=== PATIENT | female | born 1995 | race Two or more races ===

== ENCOUNTER 2018-07-03 09:26 | Observation (INO) | payer MEDICAID ==
[2018-07-03] MEDS ORDERED: PREN-96 PO (10:11)
== END 2018-07-03 10:30 | disposition home or self-care (01) | DRG 566 ==
LOC: LDRP 09:26
PROVIDERS: ADMIT Obstetrics & Gynecology; ATTEND Obstetrics & Gynecology
DX: O46.92 Antepartum hemorrhage, unspecified, second trimester (principal); Z3A.23 23 weeks gestation of pregnancy; Z87.891 Personal history of nicotine dependence
CPT/HCPCS: 59025; 76805; 81002; G0378

== ENCOUNTER 2019-06-06 00:15 | Emergency (ER) | payer SELFPAY ==
[~2019-06-06] VITALS: Ht 160 cm; Wt 88.0 kg
[~2019-06-06 00:15] MED LIST: PREN-96 PO
[2019-06-06 01:45] LABS: Basophils # (auto) 0.1 10 ^3/uL (0-0.2); Basophils % (auto) 0.7 % (0.0-2.0); Eosinophils # (auto) 0.1 10 ^3/uL (0-0.8); Eosinophils % (auto) 1.9 % (0.0-7.0); Hematocrit 42.8 % (36.0-46.0); Hemoglobin 14.7 g/dL (12.2-16.2); Lymphocytes # (auto) 3.3 10 ^3/uL (0.4-5.4); Lymphocytes % (auto) 41.2 % (10.0-50.0); Mean Corpuscular Hemoglobin 31.7 pg (28.0-32.0); Mean Corpuscular Hgb Conc. 34.5 g/dL (32.0-36.0); Mean Corpuscular Volume 91.9 fL (80.0-100.0); Monocytes # (auto) 0.4 10 ^3/uL (0-1.3); Monocytes % (auto) 4.8 % (0.0-12.0); Neutrophils # (auto) 4.1 10 ^3/uL (1.6-8.6); Neutrophils % (auto) 51.4 % (37.0-80.0); Nucleated Red Blood Cells % 0.1 %; Platelet Count (auto) 178 10^3/uL (140-450); Red Blood Cells 4.65 10^6/uL (4.0-5.20); Red Cell Distribution Width 13.7 % (11.8-14.3); White Blood Cell 7.9 10^3/uL (4.4-10.8)
[2019-06-06 02:03] LABS: Albumin 3.9 g/dL (3.4-5.0); Anion Gap 8 (5-15); Aspartate Aminotransferase 17 U/L (15-37); BUN/Creatinine Ratio 14.6; Blood Urea Nitrogen 13 mg/dL (7-18); Carbon Dioxide 20 mmol/L (21-32); Chloride 107 mmol/L (98-107); GFR African American 100 mL/min; GFR Non-African American 83 mL/min; Glucose 106 mg/dL (74-106); Magnesium 1.6 mg/dL (1.6-2.6); Potassium 3.5 mmol/L (3.5-5.1); Sodium 135 mmol/L (136-145)
[2019-06-06 02:08] LABS: Alanine Aminotransferase 33 U/L (13-56); Alkaline Phosphatase 73 U/L (45-117); Bilirubin, Total 0.3 mg/dL (0.2-1.0); Total Protein 7.7 g/dL (6.4-8.2)
[2019-06-06 02:09] LABS: INR 0.99 (0.9-1.15); Partial Thromboplastin Time 24.7 sec (23.64-32.05)
[2019-06-06 02:09] LABS: Alcohol, Urine < 3.0 mg/dL (0-5); Amphetamine Screen, Urine NEGATIVE (NEGATIVE); Barbiturate Scree,Urine NEGATIVE (NEGATIVE); Benzodiazephine Screen, Urine NEGATIVE (NEGATIVE); Cannabinoid Screen, Urine POSITIVE (NEGATIVE); Opiate Scree,Urine NEGATIVE (NEGATIVE); Phencyclidine Screen, Urine NEGATIVE (NEGATIVE)
[2019-06-06 02:16] LABS: Cocaine Screen, Urine NEGATIVE (NEGATIVE)
[2019-06-06] MEDS ORDERED: SODIUM CHLORIDE 0.9% 1,000 ML IV ONE (02:30)
[2019-06-06] MEDS ORDERED: IPRATROPIUM BROM 0.5 MG/2.5ML INH SOL NEB ONE (03:30)
[2019-06-06] MEDS ORDERED: ALBUTEROL SULF 2.5 MG/0.5ML(0.5%) NEB SOLN NEB ONE (03:30)
[2019-06-06] MEDS ORDERED: ALBUTEROL SULF 2.5 MG/0.5ML(0.5%) NEB SOLN ONE (03:34)
[2019-06-06] MEDS ORDERED: IPRATROPIUM BROM 0.5 MG/2.5ML INH SOL ONE (03:34)
[2019-06-06 04:00] VITALS: BP 124/81
== END 2019-06-06 05:40 | disposition home or self-care (01) ==
LOC: ER 00:15
DX: J45.909 Unspecified asthma, uncomplicated (principal); F41.9 Anxiety disorder, unspecified; F12.10 Cannabis abuse, uncomplicated
CPT/HCPCS: 36415; 71046; 80053; 80307; 83735; 83880; 84443; 84484; 85025; 85610; 85730; 93005; 94640; 99285; J7644

== ENCOUNTER 2020-05-05 16:31 | Emergency (ER) | payer MEDICAID ==
[~2020-05-05] VITALS: Ht 160 cm; Wt 81.6 kg
[2020-05-05 16:33] VITALS: BP 145/63
[2020-05-05] MEDS ORDERED: SUMAtriptan SUCCINATE 6 MG/0.5 ML VL SC ONE (20:45)
== END 2020-05-05 22:02 | disposition home or self-care (01) ==
LOC: ER 16:32
DX: G43.909 Migraine, unspecified, not intractable, without status migrainosus (principal); F12.10 Cannabis abuse, uncomplicated
CPT/HCPCS: 96372; 99283; J3030

== ENCOUNTER 2020-11-11 15:50 | Emergency (ER) | payer MEDICAID ==
[~2020-11-11] VITALS: Ht 160 cm; Wt 88.9 kg
[2020-11-11 20:23] VITALS: BP 118/69
== END 2020-11-11 20:50 | disposition home or self-care (01) ==
LOC: ER 15:50
DX: O99.513 Diseases of the respiratory system complicating pregnancy, third trimester (principal); R09.82 Postnasal drip; R05 Cough; R09.81 Nasal congestion; J45.909 Unspecified asthma, uncomplicated; Z3A.26 26 weeks gestation of pregnancy

== ENCOUNTER 2022-01-14 23:21 | Emergency (ER) | payer MEDICAID ==
[~2022-01-14] VITALS: Ht 160 cm; Wt 86.1 kg
[2022-01-15 00:23] VITALS: BP 152/98
[2022-01-15 01:05] LABS: Urine Bacteria FEW /hpf (None Seen); Urine Blood 3+ /uL (Negative); Urine Specific Gravity 1.008 (1.001-1.035); Urine WBC 1 /hpf (0 - 5)
[2022-01-15 01:58] LABS: Basophils # (auto) 0.1 10 ^3/uL (0-0.2); Basophils % (auto) 0.7 % (0.0-2.0); Eosinophils # (auto) 0.2 10 ^3/uL (0-0.8); Hematocrit 41.6 % (36.0-46.0); Lymphocytes # (auto) 3.8 10 ^3/uL (0.4-5.4); Lymphocytes % (auto) 44.9 % (10.0-50.0); Mean Corpuscular Hemoglobin 31.5 pg (28.0-32.0); Mean Corpuscular Hgb Conc. 33.7 g/dL (32.0-36.0); Mean Corpuscular Volume 93.4 fL (80.0-100.0); Monocytes # (auto) 0.4 10 ^3/uL (0-1.3); Monocytes % (auto) 4.3 % (0.0-12.0); Neutrophils # (auto) 4.1 10 ^3/uL (1.6-8.6); Neutrophils % (auto) 48.1 % (37.0-80.0); Nucleated Red Blood Cells % 0.1 %; Red Blood Cells 4.46 10^6/uL (4.0-5.20); Red Cell Distribution Width 13.9 % (11.8-14.3); White Blood Cell 8.5 10^3/uL (4.4-10.8)
[2022-01-15 02:04] LABS: INR 0.92 (0.9-1.15); Partial Thromboplastin Time 26.2 sec (24.6-33.4)
[2022-01-15] MEDS ORDERED: AZIT250T9 PO ×2 (02:21→08:01)
[2022-01-15 02:25] LABS: Albumin 3.8 g/dL (3.4-5.0); BUN/Creatinine Ratio 12.3; Calcium 8.9 mg/dL (8.5-10.1); Potassium 4.2 mmol/L (3.5-5.1)
[2022-01-15 02:28] LABS: Bilirubin, Total 0.3 mg/dL (0.2-1.0); Total Protein 7.4 g/dL (6.4-8.2)
[2022-01-15] MEDS ORDERED: AZITHROMYCIN 250 MG TAB PO ONE ×2 (02:30→03:14)
== END 2022-01-15 07:50 | disposition home or self-care (01) ==
LOC: ER 23:23
DX: N93.8 Other specified abnormal uterine and vaginal bleeding (principal); Z32.02 Encounter for pregnancy test, result negative
CPT/HCPCS: 36415; 76801; 80053; 81001; 81025; 84702; 85025; 85610; 85730; 86850; 86900; 86901

== ENCOUNTER 2022-01-17 06:30 | Emergency (ER) | payer MEDICAID ==
[~2022-01-17] VITALS: Ht 160 cm; Wt 85.9 kg
[~2022-01-17 06:30] MED LIST changes: +AZIT250T9 PO
[2022-01-17 07:30] VITALS: BP 108/64
== END 2022-01-17 08:01 | disposition home or self-care (01) ==
LOC: ER 06:30
DX: O03.9 Complete or unspecified spontaneous abortion without complication (principal)
CPT/HCPCS: 36415; 84702

== ENCOUNTER 2024-07-20 13:01 | Emergency (ER) | payer MEDICAID ==
[~2024-07-20] VITALS: Ht 160 cm; Wt 79.2 kg
[~2024-07-20 13:01] MED LIST changes: +AZIT-43 PO; -AZIT250T9 PO; +SILV1CRE82 TOP
--- NOTE | 2024-07-20 14:36 | DVH ---
INDICATION: NECK PAIN TO SHOULDER COMPARISON: None TECHNIQUE: 3 views of the cervical spine were obtained. FINDINGS: The cervical vertebral alignment is normal. The predental space is normal. The intervertebral disc spaces are well-maintained. No significant facet arthropathy is noted. No acute fracture, vertebral compression deformity or aggressive osseous lesions. The imaged lung apices are unremarkable. IMPRESSION: No acute fracture.
[2024-07-20 15:21] VITALS: BP 140/92; PULSE 72; RESP 17; TEMP 97.6; O2SAT 97
[2024-07-20] MEDS ORDERED: METH-1182 PO (15:44)
[2024-07-20] MEDS ORDERED: IBUP-1456 PO (15:44)
--- NOTE | 2024-07-20 15:52 | ED.PDOC ---
Back pain HPI HPI Comments A 28 YEAR OLD FEMALE PRESENTS TO THE ED WITH CHIEF COMPLAINT OF NECK PAIN. PATIENT REPORTS THAT SHE HAS BEEN EXPERIENCING LEFT SIDED NECK PAIN THAT RADIATES INTO HER LEFT SHOULDER FOR THE PAST 3 DAYS. 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 PATIENT DENIES ANY INJURY, TRAUMA, DIZZINESS, HEADACHE, OR EAR PAIN. NO OTHER SYMPTOMS REPORTED AT THIS TIME OF CARE. Chief Complaint: Neck Pain Time Seen by MD: 15:20 Primary Care Provider: Zachery Hoang Notes: Nurses Notes, Medications, Allergies Allergies: Coded Allergies: NO KNOWN ALLERGIES (Unverified , 04/20/10) Home Meds Active Scripts Methocarbamol (Methocarbamol) 750 Mg Tab, 750 MG PO BID, #20 TAB Prov:DENISE WHITE 07/20/24 Ibuprofen (Ibuprofen) 800 Mg Tab, 1 TAB PO TID, #30 TAB Prov:DENISE WHITE 07/20/24 Silver Sulfadiazine (Silvadene) 1 % Cre, 1 APPLIC TOP DAILY, #50 GRAMS Prov:RENATE ELIZONDO PAC 04/04/23 Azithromycin (Azithromycin) 250 Mg Tab, 250 MG PO DAILY for 4 Days, #4 TAB Prov:NIGEL CARDOZO MD 01/15/22 Azithromycin (Azithromycin) 250 Mg Tab, 250 MG PO DAILY for 4 Days, #4 TAB Prov:CURTIS SILVER MD 01/15/22 Reported Medications Vit W/ Ferrous Fumara ( One Daily) Daily Tab, 1 TAB PO DAILY, #90 TAB 3 Refills 07/03/18 Information Source: Patient Mode of Arrival: Ambulatory Timing: Days Duration: Since onset, Days Location of Back pain: (B) Cervical Severity: Moderate Prehospital treatment: None Quality: Aching, Cramping Onset: Twisting, Lifing Circumstance: Work Related Modifying Factors: Movement Associated signs and symptoms: None Past Medical History PAST MEDICAL HISTORY: Asthma Surgical History: Denies all surgeries FUR FINISHER TAILOR History: No Pertinent FUR FINISHER TAILOR History Family History Family History: Reviewed,noncontributory to illness, No family hx of Cancer, No family hx of DM, No family hx of Heart jose, No family hx of HTN, No family hx ofKidney jose, No family hx of Liver jose, No family hx of Lung jose, No family hx of Stroke Family History (Other): mother with asthma Social History Smoker: Non-Smoker Alcohol: Denies ETOH Use Drugs: Marijuana Lives In: Home Constitutional: denies: chills, diaphoresis, fatigue, fever, malaise, sweats, weakness, others EENTM: denies: blurred vision, double vision, ear bleeding, ear discharge, ear drainage, ear pain, ear ringing, eye pain, eye redness, hearing loss, mouth pain, mouth swelling, nasal discharge, nose bleeding, nose congestion, nose pain, photophobia, tearing, throat pain, throat swelling, voice changes, others Respiratory: denies: cough, hemoptysis, orthopnea, SOB at rest, shortness of breath, SOB with excertion, stridor, wheezing, others Cardiovascular: denies: chest pain, dizzy spells, diaphoresis, Dyspnea on exertion, edema, irregular heart beat, left arm pain, lightheadedness, palpitations, PND, syncope, others Gastrointestinal: denies: abdomen distended, abdominal pain, blood streaked bowels, constipated, diarrhea, dysphagia, difficulty swallowing, hematemesis, melena, nausea, poor appetite, poor fluid intake, rectal bleeding, rectal pain, vomiting, others Genitourinary: denies: abnormal vagina bleeding, burning, dyspareunia, dysuria, flank pain, frequency, hematuria, incontinence, pain, , vagina discharge, urgency, others Musculoskeletal: reports: muscle pain, neck pain; denies: back pain, gout, joint pain, joint swelling, muscle stiffness, others Integumetry: denies: bruises, change in color, change in hair/nails, dryness, laceration, lesions, lumps, rash, wounds, others Allergic/Immunocompromised: denies: Difficulty Healing, Frequent Infections, Hives, Itching, others Hematologic/Lymphatic: denies: anemia, blood clots, easy bleeding, easy bruising, swollen glands, others Endocrine: denies: excessive hunger, excessive sweating, excessive thirst, excessive urination, flushing, intolerance to cold, intolerance to heat, unexplained weight gain, unexplained weight loss, others Psychiatric: denies: anxiety, bipolar disorder, depression, hopeless, panic disorder, schizophrenia, sleepless, suicidal, others All Other Systems: Reviewed and Negative Physical Exam General Appearance: No Apparent Distress, Normal HEENT: Normal ENT Inspection, PERRL/EOMI, Pharynx Normal, TMs Normal Neck: Full Range of Motion, Normal Inspection, Supple, Tender Lateral (TENDERNESS AND MUSCLE SPASM ON LEFT SIDE NECK AND UPPER BACK, NO BONY TENDERNESS, SWELLING AND DEFORMITY. ) Respiratory: Chest Non-Tender, Lungs Clear, No Accessory Muscle Use, No Respiratory Distress, Normal Breath Sounds Cardiovascular: No Edema, No JVD, No Murmur, No Gallop, Normal Peripheral Pulses, Regular Rate/Rhythm Breast Exam: Deferred Gastrointestinal: No Organomegaly, Non Tender, No Pulsatile Mass, Normal Bowel Sounds, Soft Genitalia: Deferred Pelvic: Deferred Rectal: Deferred Extremities: No calf tenderness, Normal capillary refill, Normal inspection, Normal range of motion, Non-tender, No pedal edema Musculoskeletal : Apperance: Normal Neurologic: Alert, supervisory air intercept controller II-XII nml as Tested, No Motor Deficits, Normal Affect, Normal Mood, No Sensory Deficits Cerebellar Function: Normal Reflexes: Normal Skin: Dry, Normal Color, Warm Peripheral Pulses: 2+ carotid (R), 2+ carotid (L) Lymphatic: No Adenopathy Was a procedure done? Was a procedure done?: No Back Pain Differential Dx Differential Diagnosis: Musculoskeletal Pain, Strain X-Ray, Labs, Meds, VS Vital Signs Date Time Temp Pulse Resp B/P (MAP) Pulse Ox O2 Delivery O2 Flow Rate FiO2 07/20/24 15:21 97.6 72 17 140/92 (108) 97 97.6 07/20/24 15:21 72 17 97 Room Air 07/20/24 13:40 97.6 72 17 140/92 (108) 97 97.6 C-SPINE XR: FINDINGS: The cervical vertebral alignment is normal. The predental space is normal. The intervertebral disc spaces are well-maintained. No significant facet ar thropathy is noted. No acute fracture, vertebral compression deformity or aggressive osseous lesions. The imaged lung apices are unremarkable. IMPRESSION: No acute fracture. X-Ray, Labs, Meds, VS Comment EXTERNAL MEDICAL RECORDS REVIEWED: [NONE] INDEPENDENT HISTORIANS: [NONE] SOCIAL DETERMINANTS OF HEALTH: [NONE] LABS ORDERED: NONE REVIEWED AND INTERPRETED RESULTS: C-SPINE XR IMAGING ORDERED: C-SPINE XR TREATMENTS ORDERED: NONE PROCEDURES PERFORMED: NONE CRITICAL CARE TIME: NONE I HAVE DISCUSSED THE PATIENT WITH THE ATTENDING PHYSICIAN DR. CALLAHAN AND HE AGREES WITH THE PATIENT'S PLAN OF CARE AND DISPOSITION. BASED ON HISTORY OF PRESENT ILLNESS, AND PHYSICAL EXAM, PATIENT WILL BE DISCHARGED HOME. DISCUSSED PLAN FOR DISCHARGE HOME WITH RX IBUPROFEN AND ROBAXIN. MEDICATION WARNINGS GIVEN. SHARED DECISION MAKING: DISCUSSED WITH PATIENT THAT THEIR WORKUP WAS NORMAL. PATIENT INSTRUCTED TO FOLLOW UP WITH PRIMARY CARE PROVIDER IN 1-2 DAYS FOR RE- EVALUATION OF SYMPTOMS. PATIENT VERBALIZES UNDERSTANDING TO RETURN TO ED FOR NEW OR WORSENING SYMPTOMS OR IF FOLLOW UP WITH PCP CANNOT BE OBTAINED. PATIENT FEELS COMFORTABLE GOING HOME AT THIS TIME. ALL QUESTIONS ADDRESSED AT TIME OF DISCHARGE. Time of 1ST Reevaluation: 15:56 Reevaluation 1ST: Improved Patient Education/Counseling: Diagnosis, Treatment, Need For Follow Up Family Education/Counseling: Diagnosis, Treatment, No Family Present Medical Screening: No EMC Exist At This Time Departure 1 Departure Time of Disposition: 15:56 Impression: Primary Impression: Cervical muscle strain Qualified Codes: S16.1XXA - Strain of muscle, fascia and tendon at neck level, initial encounter Disposition: 01 HOME / SELF CARE / HOMELESS Condition: Stable Additional Instructions: FOLLOW-UP WITH PCP IN 1 TO 2 DAYS. TAKE MEDICATIONS PRESCRIBED. RETURN TO ED FOR ANY NEW OR WORSENING SYMPTOMS. e-Prescriptions Methocarbamol (Methocarbamol) 750 Mg Tab 750 MG PO BID, #20 TAB Prov: DENISE WHITE 07/20/24 Ibuprofen (Ibuprofen) 800 Mg Tab 1 TAB PO TID, #30 TAB Prov: DENISE WHITE 07/20/24 Discharged With: Self Critical Care Note Critical Care Time?: No Stability Stability form required: No Heart Score Heart Score: Heart Score Response (Comments) Value History N/A 0 EKG N/A 0 Age N/A 0 Risk Factors N/A 0 Troponin N/A 0 Total 0 I personally scribed for DENISE WHITE ([email or web address]) on 07/20/24 at 15:54. Electronically submitted by Charlie Mayers ([email or web address]). DENISE WHITE Jul 20, 2024 15:52
== END 2024-07-20 15:49 | disposition home or self-care (01) ==
LOC: ER 13:11
DX: S16.1XXA Strain of muscle, fascia and tendon at neck level, initial encounter (principal); J45.909 Unspecified asthma, uncomplicated; X50.9XXA Other and unspecified overexertion or strenuous movements or postures, initial encounter; Y93.89 Activity, other specified; Y92.89 Other specified places as the place of occurrence of the external cause; Y99.8 Other external cause status
CPT/HCPCS: 72040

== ENCOUNTER 2024-08-23 07:56 | Emergency (ER) | payer MEDICAID ==
[~2024-08-23] VITALS: Ht 160 cm; Wt 81.5 kg
[~2024-08-23 07:56] MED LIST changes: +IBUP-1456 PO; +METH-1182 PO
--- NOTE | 2024-08-23 08:17 | ED.PDOC ---
History of Present Illness HPI Comments 28-year-old female had a syncopal episode last night while cleaning her kitchen. She was standing when she fell onto her head causing a wound on her scalp. She states that she had ringing in her ears prior to the fall other than that she does not remember the event. She woke up in the morning on the floor. Denies any past medical surgical history. Chief Complaint: Head Injury Time Seen by MD: 08:16 Primary Care Provider: Zachery Hoang Notes: Nurses Notes, Medications, Allergies Allergies: Coded Allergies: NO KNOWN ALLERGIES (Unverified , 04/20/10) Home Meds Active Scripts Nitrofurantoin Monohydrate Mac (Macrobid) 100 Mg Cap, 100 MG PO BID for 7 Days, #14 CAP Prov:DUSTY WELCH MD 08/23/24 Methocarbamol (Methocarbamol) 750 Mg Tab, 750 MG PO BID, #20 TAB Prov:DENISE WHITE 07/20/24 Ibuprofen (Ibuprofen) 800 Mg Tab, 1 TAB PO TID, #30 TAB Prov:DENISE WHITE 07/20/24 Silver Sulfadiazine (Silvadene) 1 % Cre, 1 APPLIC TOP DAILY, #50 GRAMS Prov:RENATE ELIZONDO PAC 04/04/23 Azithromycin (Azithromycin) 250 Mg Tab, 250 MG PO DAILY for 4 Days, #4 TAB Prov:NIGEL CARDOZO MD 01/15/22 Azithromycin (Azithromycin) 250 Mg Tab, 250 MG PO DAILY for 4 Days, #4 TAB Prov:CURTIS SILVER MD 01/15/22 Reported Medications Vit W/ Ferrous Fumara ( One Daily) Daily Tab, 1 TAB PO DAILY, #90 TAB 3 Refills 07/03/18 Information Source: Patient Mode of Arrival: Ambulatory Severity: Moderate Timing: Hours Duration: Since onset Past Medical History PAST MEDICAL HISTORY: Asthma Surgical History: Denies all surgeries ECHOCARDIOLOGIST History: No Pertinent ECHOCARDIOLOGIST History Family History Family History: Reviewed,noncontributory to illness, No family hx of Cancer, No family hx of DM, No family hx of Heart jose, No family hx of HTN, No family hx ofKidney jose, No family hx of Liver jose, No family hx of Lung jose, No family hx of Stroke Family History (Other): mother with asthma Social History Smoker: Non-Smoker Alcohol: Denies ETOH Use Drugs: Marijuana Lives In: Home Constitutional: denies: chills, diaphoresis, fatigue, fever, malaise, sweats, weakness, others EENTM: denies: blurred vision, double vision, ear bleeding, ear discharge, ear drainage, ear pain, ear ringing, eye pain, eye redness, hearing loss, mouth pain, mouth swelling, nasal discharge, nose bleeding, nose congestion, nose pain, photophobia, tearing, throat pain, throat swelling, voice changes, others Respiratory: denies: cough, hemoptysis, orthopnea, SOB at rest, shortness of breath, SOB with excertion, stridor, wheezing, others Cardiovascular: reports: syncope; denies: chest pain, dizzy spells, diaphoresis, Dyspnea on exertion, edema, irregular heart beat, left arm pain, li ghtheadedness, palpitations, PND, others Gastrointestinal: denies: abdomen distended, abdominal pain, blood streaked bowels, constipated, diarrhea, dysphagia, difficulty swallowing, hematemesis, melena, nausea, poor appetite, poor fluid intake, rectal bleeding, rectal pain, vomiting, others Genitourinary: denies: abnormal vagina bleeding, burning, dyspareunia, dysuria, flank pain, frequency, hematuria, incontinence, pain, , vagina discharge, urgency, others Neurological: denies: dizziness, fainting, headache, left sided numbness, left sided weakness, numbness, paresthesia, pre-existing deficit, right sided numbness, right sided weakness, seizure, speech problems, tingling, tremors, wea kness, others Musculoskeletal: denies: back pain, gout, joint pain, joint swelling, muscle pain, muscle stiffness, neck pain, others Integumetry: denies: bruises, change in color, change in hair/nails, dryness, l aceration, lesions, lumps, rash, wounds, others Allergic/Immunocompromised: denies: Difficulty Healing, Frequent Infections, Hives, Itching, others Hematologic/Lymphatic: denies: anemia, blood clots, easy bleeding, easy bruising, swollen glands, others Endocrine: denies: excessive hunger, excessive sweating, excessive thirst, excessive urination, flushing, intolerance to cold, intolerance to heat, unexplained weight gain, unexplained weight loss, others Psychiatric: denies: anxiety, bipolar disorder, depression, hopeless, panic disorder, schizophrenia, sleepless, suicidal, others Physical Exam General Appearance: Moderate Distress HEENT: Normal ENT Inspection, Pharynx Normal, TMs Normal Neck: Full Range of Motion, Non-Tender, Normal, Normal Inspection Respiratory: Chest Non-Tender, Lungs Clear, No Accessory Muscle Use, No Re spiratory Distress, Normal Breath Sounds Cardiovascular: No Edema, No JVD, No Murmur, No Gallop, Normal Peripheral Pulses, Regular Rate/Rhythm Breast Exam: Deferred Gastrointestinal: No Organomegaly, Non Tender, No Pulsatile Mass, Normal Bowel Sounds, Soft Genitalia: Deferred Pelvic: Deferred Rectal: Deferred Extremities: No calf tenderness, Normal capillary refill, Normal inspection, Normal range of motion, Non-tender, No pedal edema Musculoskeletal : Apperance: Normal Neurologic: Alert, sustainment logistics analyst II-XII nml as Tested, No Motor Deficits, Normal Affect, Normal Mood, No Sensory Deficits Cerebellar Function: Normal Reflexes: Normal Skin: Dry, Lacerations (Scalp), Normal Color, Warm Peripheral Pulses: 3+ Radial (R), 3+ Radial (L) Lymphatic: No Adenopathy Was a procedure done? Was a procedure done?: Yes Sedation Sedation?: No Laceration Repair : Location Scalp Length 2 cm Anesthetic: Lidocaine Laceration Repair Prep: Saline Laceration Repair Wound Comple: epidermis/dermis repair Laceration Repair: [place] (Three) EKG EKG : Pulse Rate (adult): 75 Cardiac Rhythm: NSR Differential Dx Considerations may include: Head injury Syncope X-Ray, Labs, Meds, VS Vital Signs Date Time Temp Pulse Resp B/P (MAP) Pulse Ox O2 Delivery O2 Flow Rate FiO2 08/23/24 10:36 98.3 74 18 117/75 (89) 96 98.3 08/23/24 10:36 74 18 96 Room Air 08/23/24 08:18 76 08/23/24 08:17 75 08/23/24 08:15 75 08/23/24 08:10 97.6 76 18 114/70 (85) 99 97.6 Lab Test 08/23/24 08:49 08/23/24 08:15 Range/Units Troponin I High Sensitivity < 3 L </=34 ng/L Urine Color Colorless Yellow Urine Clarity Clear Clear Urine pH 6.0 5.0-9.0 Urine Specific [place] 1.005 1.001-1.035 Urine Protein Negative Negative Urine Ketones Negative Negative Urine Blood Negative Negative /uL Urine Nitrite Negative Negative Urine Bilirubin Negative Negative Urine Urobilinogen Normal Negative mg/dL Urine Leukocyte Esterase 2+ Negative /uL Urine RBC 4 0 - 4 /hpf Urine Microscopic WBC 3 0-5 /HPF Urine Squamous Epithelial Cells Few <5 /hpf Urine Bacteria None seen None Seen /hpf Urine Glucose Normal Normal mg/dL Patient alert. Status post fall. Has a abrasion on the scalp. Vitals stable. Answering questions. Ambulating. Physical examination pristine. Continue monitoring. EKG reviewed does not show any acute changes. CT of the head reviewed does not show any acute changes. Urinalysis shows UTI. Was given prescription of Macrobid antibiotic. Explained to the patient. Satisfied with the treatment plan. Was told to follow up with her primary care physician. Was told to come back if there is any problem. Time of 1ST Reevaluation: 08:27 Reevaluation 1ST: Unchanged Patient Education/Counseling: Diagnosis, Treatment, Prognosis, Need For Follow Up Family Education/Counseling: No Family Present Departure 1 Departure Time of Disposition: 08:28 Impression: Primary Impression: Syncope Qualified Codes: R55 - Syncope and collapse Additional Impressions: Head injury Qualified Codes: S09.90XA - Unspecified injury of head, initial encounter UTI (urinary tract infection) Qualified Codes: N30.00 - Acute cystitis without hematuria Laceration Disposition: HOME / SELF CARE / HOMELESS Condition: Good e-Prescriptions Nitrofurantoin Monohydrate Mac (Macrobid) 100 Mg Cap 100 MG PO BID for 7 Days, #14 CAP Prov: DUSTY WELCH MD 08/23/24 Discharged With: Self Critical Care Note Critical Care Time?: Yes (45 min-critical care time only) Critical care comment: Syncopal episode Stability Stability form required: No Heart Score Heart Score: Heart Score Response (Comments) Value History Slightly Suspicious 0 EKG Normal 0 Age <45 0 Risk Factors No known risk factors 0 Troponin Normal limit 0 Total 0 DUSTY WELCH MD August 23, 2024 08:17
[2024-08-23 08:18] VITALS: PULSE 76
[2024-08-23 08:34] LABS: Urine Bacteria None Seen /hpf (None Seen)
[2024-08-23 08:41] LABS: Urine Blood Negative /uL (Negative); Urine Clarity Clear (Clear); Urine Color Colorless (Yellow); Urine Protein, UAD Negative (Negative); Urine Specific Gravity 1.005 (1.001-1.035); Urine Squamous Epithelial Cell FEW /hpf (<5); Urine Urobilinogen Normal (Negative); Urine WBC 3 /HPF (0-5)
--- NOTE | 2024-08-23 09:02 | DVH ---
EXAM: CT HEAD WITHOUT CONTRAST HISTORY: syncope COMPARISON: None TECHNIQUE: Axial images of the head were obtained and reformatted in coronal and sagittal planes. All CT scans at this medical facility are performed using dose modulation techniques as appropriate t o a performed exam including the following: Automated exposure control was utilized; adjustment of th e MA and/or KV according to patient size; and use of iterative reconstruction technique. CT Dose: CTDI volume is 63 mGy. Dose-length product is 946 mGy*cm FINDINGS: There is no evidence of acute intracranial hemorrhage, mass, mass effect midline shift. There is no h ydrocephalus or extra-axial fluid collection. Rodriguez-white matter differentiation is maintained. The visualized paranasal sinuses and mastoid air cells are clear. The calvarium is intact. IMPRESSION: 1. No acute intracranial process. HS:Y
[2024-08-23] MEDS ORDERED: NITR-87 PO (10:19)
[2024-08-23 10:36] VITALS: BP 117/75; PULSE 74; RESP 18; TEMP 98.3; O2SAT 96
--- NOTE | 2024-08-23 18:59 | ECG ---
[facility] Test Date: 2024-08-23 Test Time: 08:13:06 Pat Name: JOY LUNDBERG Department: ED Room: Gender: F Head Of Housekeeping: HUMBLE : 1995 Requested By: DUSTY WELCH Order Number: [id number] Reading MD: Measurements Intervals [place] Rate: 75 P: 44 SC: 147 QRS: 66 QRSD: 87 T: 43 QT: 383 QTc: 428 Interpretive Statements Sinus rhythm Please click the below link to view image of tracing.
== END 2024-08-23 10:39 | disposition home or self-care (01) ==
LOC: ER 07:59
DX: S01.01XA Laceration without foreign body of scalp, initial encounter (principal); S09.8XXA Other specified injuries of head, initial encounter; R55 Syncope and collapse; J45.909 Unspecified asthma, uncomplicated; N39.0 Urinary tract infection, site not specified; W19.XXXA Unspecified fall, initial encounter; Y93.89 Activity, other specified; Y92.89 Other specified places as the place of occurrence of the external cause; Y99.8 Other external cause status
CPT/HCPCS: 12001; 36415; 70450; 81001; 84484; 93005

== ENCOUNTER 2024-08-25 08:27 | Emergency (ER) | payer MEDICAID ==
[~2024-08-25] VITALS: Ht 160 cm; Wt 80.9 kg
[~2024-08-25 08:27] MED LIST changes: +NITR-87 PO
[2024-08-25 08:46] VITALS: BP 135/80; PULSE 84; RESP 20; TEMP 97.9; O2SAT 98
--- NOTE | 2024-08-25 09:29 | ED.PDOC ---
History of Present Illness HPI Comments 28 year old female presents to the ED with a chief complaint of wound check onset today (08/25/24). Patient states she was seen in this ED 2 days ago, had criss placed on scalp, was told to return to ED in 2 days for wound check. Patient has no further complaints. PMHx migraine. Denies headache, dizziness, blurry vision, nausea, vomiting, diarrhea. No other symptoms or modifying factors present at this time. Chief Complaint: Wound Check Time Seen by MD: 09:00 Primary Care Provider: Zachery Hoang Notes: Medications, Allergies Allergies: Coded Allergies: NO KNOWN ALLERGIES (Unverified , 04/20/10) Home Meds Active Scripts Nitrofurantoin Monohydrate Mac (Macrobid) 100 Mg Cap, 100 MG PO BID for 7 Days, #14 CAP Prov:DUSTY WELCH MD 08/23/24 Methocarbamol (Methocarbamol) 750 Mg Tab, 750 MG PO BID, #20 TAB Prov:DENISE WHITE 07/20/24 Ibuprofen (Ibuprofen) 800 Mg Tab, 1 TAB PO TID, #30 TAB Prov:DENISE WHITE 07/20/24 Silver Sulfadiazine (Silvadene) 1 % Cre, 1 APPLIC TOP DAILY, #50 GRAMS Prov:RENATE ELIZNODO PAC 04/04/23 Azithromycin (Azithromycin) 250 Mg Tab, 250 MG PO DAILY for 4 Days, #4 TAB Prov:NIGEL CARDOZO MD 01/15/22 Azithromycin (Azithromycin) 250 Mg Tab, 250 MG PO DAILY for 4 Days, #4 TAB Prov:CURTIS SILVER MD 01/15/22 Reported Medications Vit W/ Ferrous Fumara ( One Daily) Daily Tab, 1 TAB PO DAILY, #90 TAB 3 Refills 07/03/18 Information Source: Patient Mode of Arrival: Ambulatory Severity: Moderate Timing: Hours Duration: Since onset Prehospital treatment: None Past Medical History PAST MEDICAL HISTORY: Asthma Past Medical History (Other): migraine Surgical History: Denies all surgeries COOLING TOWER TECHNICIAN History: No Pertinent COOLING TOWER TECHNICIAN History Family History Family History: Reviewed,noncontributory to illness, No family hx of Cancer, No family hx of DM, No family hx of Heart jose, No family hx of HTN, No family hx ofKidney jose, No family hx of Liver jose, No family hx of Lung jose, No family hx of Stroke Family History (Other): mother with asthma Social History Smoker: Non-Smoker Alcohol: Denies ETOH Use Drugs: Marijuana Lives In: Home Constitutional: denies: chills, diaphoresis, fatigue, fever, malaise, sweats, weakness, others EENTM: denies: blurred vision, double vision, ear bleeding, ear discharge, ear drainage, ear pain, ear ringing, eye pain, eye redness, hearing loss, mouth pain, mouth swelling, nasal discharge, nose bleeding, nose congestion, nose pain, photophobia, tearing, throat pain, throat swelling, voice changes, others Respiratory: denies: cough, hemoptysis, orthopnea, SOB at rest, shortness of breath, SOB with excertion, stridor, wheezing, others Cardiovascular: denies: chest pain, dizzy spells, diaphoresis, Dyspnea on exertion, edema, irregular heart beat, left arm pain, lightheadedness, palpitations, PND, syncope, others Gastrointestinal: denies: abdomen distended, abdominal pain, blood streaked bowels, constipated, diarrhea, dysphagia, difficulty swallowing, hematemesis, melena, nausea, poor appetite, poor fluid intake, rectal bleeding, rectal pain, vomiting, others Genitourinary: denies: abnormal vagina bleeding, burning, dyspareunia, dysuria, flank pain, frequency, hematuria, incontinence, pain, , vagina discharge, urgency, others Neurological: denies: dizziness, fainting, headache, left sided numbness, left sided weakness, numbness, paresthesia, pre-existing deficit, right sided numbness, right sided weakness, seizure, speech problems, tingling, tremors, weakness, others Musculoskeletal: denies: back pain, gout, joint pain, joint swelling, muscle pain, muscle stiffness, neck pain, others Integumetry: reports: others (sutures on head); denies: bruises, change in color, change in hair/nails, dryness, laceration, lesions, lumps, rash, wounds Allergic/Immunocompromised: denies: Difficulty Healing, Frequent Infections, Hives, Itching, others Hematologic/Lymphatic: denies: anemia, blood clots, easy bleeding, easy bruising, swollen glands, others Endocrine: denies: excessive hunger, excessive sweating, excessive thirst, excessive urination, flushing, intolerance to cold, intolerance to heat, unexplained weight gain, unexplained weight loss, others Psychiatric: denies: anxiety, bipolar disorder, depression, hopeless, panic disorder, schizophrenia, sleepless, suicidal, others All Other Systems: Reviewed and Negative Physical Exam General Appearance: No Apparent Distress, Normal HEENT: Normal ENT Inspection, Pharynx Normal, TMs Normal Neck: Full Range of Motion, Non-Tender, Normal, Normal Inspection Respiratory: Chest Non-Tender, Lungs Clear, No Accessory Muscle Use, No Respi ratory Distress, Normal Breath Sounds Cardiovascular: No Edema, No JVD, No Murmur, No Gallop, Normal Peripheral Pulses, Regular Rate/Rhythm Breast Exam: Deferred Gastrointestinal: No Organomegaly, Non Tender, No Pulsatile Mass, Normal Bowel Sounds, Soft Genitalia: Deferred Pelvic: Deferred Rectal: Deferred Extremities: No calf tenderness, Normal capillary refill, Normal inspection, Normal range of motion, Non-tender, No pedal edema Musculoskeletal : Apperance: Normal Neurologic: Alert, pipe chipper II-XII nml as Tested, No Motor Deficits, Normal Affect, Normal Mood, No Sensory Deficits Cerebellar Function: Normal Reflexes: Normal Skin: Dry, Normal Color, Warm Lymphatic: No Adenopathy Was a procedure done? Was a procedure done?: No Differential Dx Considerations may include: wound check. wound infection. wound dehiscence X-Ray, Labs, Meds, VS Vital Signs Date Time Temp Pulse Resp B/P (MAP) Pulse Ox O2 Delivery O2 Flow Rate FiO2 08/25/ 08:46 97.9 84 20 135/80 (98) 98 97.9 Time of 1ST Reevaluation: 09:30 Reevaluation 1ST: Unchanged Patient Education/Counseling: Diagnosis, Treatment, Prognosis, Need For Follow Up Family Education/Counseling: No Family Present Additional Information pt's scalp wound is clean and well healing, without signs of an infection. her criss are intact. she is stable for discharge Departure 1 Departure Time of Disposition: 09:45 Impression: Primary Impression: Scalp wound Qualified Codes: S01.01XA - Laceration without foreign body of scalp, initial encounter Additional Impression: Visit for wound check Disposition: HOME / SELF CARE / HOMELESS Condition: Good Discharged With: Self Critical Care Note Critical Care Time?: No Stability Stability form required: No I personally scribed for BEKA RICHARD MD ([email or web address]) on 08/25/24 at 09:29. Electronically submitted by Ada Lei ([email or web address]). BEKA RICHARD MD August 25, 2024 09:29
== END 2024-08-25 11:07 | disposition left against medical advice (07) ==
LOC: ER 08:27
DX: S01.01XD Laceration without foreign body of scalp, subsequent encounter (principal); F19.90 Other psychoactive substance use, unspecified, uncomplicated; J45.909 Unspecified asthma, uncomplicated; G43.909 Migraine, unspecified, not intractable, without status migrainosus; Z48.00 Encounter for change or removal of nonsurgical wound dressing; Z79.1 Long term (current) use of non-steroidal anti-inflammatories (NSAID); Z79.899 Other long term (current) drug therapy; X58.XXXA Exposure to other specified factors, initial encounter; Y93.89 Activity, other specified; Y92.89 Other specified places as the place of occurrence of the external cause; Y99.8 Other external cause status

== ENCOUNTER 2024-10-13 12:52 | Emergency (ER) | payer MEDICAID ==
[~2024-10-13] VITALS: Ht 160 cm; Wt 83.0 kg
--- NOTE | 2024-10-13 14:52 | ED.PDOC ---
GI ASSESSMENT HPI Comments A 28 YEAR OLD FEMALE PRESENTS TO THE ED WITH COMPLAINT OF SUPRAPUBIC ABDOMINAL PAIN SINCE YESTERDAY. PATIENT IS X5 WEEKS . PATIENT DENIES FEVER, CHILLS, SHORTNESS OF BREATH, CHEST PAIN, ABDOMINAL PAIN, NAUSEA, VOMITING, HEADACHE, OR OTHER COMPLAINTS. NO OTHER SYMPTOMS OR MODIFYING FACTORS AT THIS TIME. PATIENT IS ALERT, ORIENTED X 4, AND HAS STEADY GAIT. Chief Complaint: Pelvic Pain Time Seen by MD: 13:57 Primary Care Provider: Zachery Hoang Notes: Nurses Notes, Medications, Allergies Allergies: Coded Allergies: NO KNOWN ALLERGIES (Unverified , 04/20/10) Home Meds Active Scripts Nitrofurantoin Monohydrate Mac (Macrobid) 100 Mg Cap, 100 MG PO BID for 7 Days, #14 CAP Prov:DUSTY WELCH MD 08/23/24 Methocarbamol (Methocarbamol) 750 Mg Tab, 750 MG PO BID, #20 TAB Prov:DENISE WHITE 07/20/24 Ibuprofen (Ibuprofen) 800 Mg Tab, 1 TAB PO TID, #30 TAB Prov:DENISE WHITE 07/20/24 Silver Sulfadiazine (Silvadene) 1 % Cre, 1 APPLIC TOP DAILY, #50 GRAMS Prov:RENATE ELIZONDO PAC 04/04/23 Azithromycin (Azithromycin) 250 Mg Tab, 250 MG PO DAILY for 4 Days, #4 TAB Prov:NIGEL CARDOZO MD 01/15/22 Azithromycin (Azithromycin) 250 Mg Tab, 250 MG PO DAILY for 4 Days, #4 TAB Prov:CURTIS SILVER MD 01/15/22 Reported Medications Vit W/ Ferrous Fumara ( One Daily) Daily Tab, 1 TAB PO DAILY, #90 TAB 3 Refills 07/03/18 Information Source: Patient Mode of Arrival: Ambulatory Timing: Hours Duration: Since onset Prehospital treatment: None Quality: Aching, Cramping, Colicky Vomitus: None Severity: Mild, Moderate Recent: None Pain Location: Suprapubic Associated sign and symptoms: Abdominal Pain Past Medical History PAST MEDICAL HISTORY: Asthma Surgical History: Denies all surgeries UNDERWEAR FINISHER History: No Pertinent UNDERWEAR FINISHER History Family History Family History: Reviewed,noncontributory to illness, No family hx of Cancer, No family hx of DM, No family hx of Heart jose, No family hx of HTN, No family hx ofKidney jose, No family hx of Liver jose, No family hx of Lung jose, No family hx of Stroke Family History (Other): mother with asthma Social History Smoker: Non-Smoker Alcohol: Denies ETOH Use Drugs: Marijuana Lives In: Home Constitutional: denies: chills, diaphoresis, fatigue, fever, malaise, sweats, weakness, others EENTM: denies: blurred vision, double vision, ear bleeding, ear discharge, ear drainage, ear pain, ear ringing, eye pain, eye redness, hearing loss, mouth pain, mouth swelling, nasal discharge, nose bleeding, nose congestion, nose pain, photophobia, tearing, throat pain, throat swelling, voice changes, others Respiratory: denies: cough, hemoptysis, orthopnea, SOB at rest, shortness of breath, SOB with excertion, stridor, wheezing, others Cardiovascular: denies: chest pain, dizzy spells, diaphoresis, Dyspnea on exertion, edema, irregular heart beat, left arm pain, lightheadedness, palpitations, PND, syncope, others Gastrointestinal: reports: abdominal pain; denies: abdomen distended, blood streaked bowels, constipated, diarrhea, dysphagia, difficulty swallowing, hematemesis, melena, nausea, poor appetite, poor fluid intake, rectal bleeding, rectal pain, vomiting, others Genitourinary: denies: abnormal vagina bleeding, burning, dyspareunia, dysuria, flank pain, frequency, hematuria, incontinence, pain, , vagina discharge, urgency, others Neurological: denies: dizziness, fainting, headache, left sided numbness, left sided weakness, numbness, paresthesia, pre-existing deficit, right sided numbness, right sided weakness, seizure, speech problems, tingling, tremors, weakness, others Musculoskeletal: denies: back pain, gout, joint pain, joint swelling, muscle pain, muscle stiffness, neck pain, others Integumetry: denies: bruises, change in color, change in hair/nails, dryness, laceration, lesions, lumps, rash, wounds, others Allergic/Immunocompromised: denies: Difficulty Healing, Frequent Infections, Hives, Itching, others Hematologic/Lymphatic: denies: anemia, blood clots, easy bleeding, easy bruising, swollen glands, others Endocrine: denies: excessive hunger, excessive sweating, excessive thirst, excessive urination, flushing, intolerance to cold, intolerance to heat, une xplained weight gain, unexplained weight loss, others Psychiatric: denies: anxiety, bipolar disorder, depression, hopeless, panic disorder, schizophrenia, sleepless, suicidal, others All Other Systems: Reviewed and Negative Physical Exam General Appearance: No Apparent Distress, Normal HEENT: Normal ENT Inspection, PERRL/EOMI, Pharynx Normal, TMs Normal Neck: Full Range of Motion, Non-Tender, Normal, Normal Inspection Respiratory: Chest Non-Tender, Lungs Clear, No Accessory Muscle Use, No Re spiratory Distress, Normal Breath Sounds Cardiovascular: No Edema, No JVD, No Murmur, No Gallop, Normal Peripheral Pulses, Regular Rate/Rhythm Breast Exam: Deferred Gastrointestinal: No Organomegaly, No Pulsatile Mass, Normal Bowel Sounds, Soft, Suprapubic, Tenderness (SUPRAPUBIC, NO GUARDING AND REBOUND TENDERNESS. ) Genitalia: Deferred Pelvic: Normal External Exam, Tender Uterus Rectal: Deferred Extremities: No calf tenderness, Normal capillary refill, Normal inspection, Normal range of motion, Non-tender, No pedal edema Musculoskeletal : Apperance: Normal Neurologic: Alert, home paraprofessional II-XII nml as Tested, No Motor Deficits, Normal Affect, Normal Mood, No Sensory Deficits Cerebellar Function: Normal Reflexes: Normal Skin: Dry, Normal Color, Warm Peripheral Pulses: 2+ carotid (R), 2+ carotid (L) Lymphatic: No Adenopathy Was a procedure done? Was a procedure done?: No GI differential Dx Differential Diagnosis: Gastroenteritis, UTI, Dehydration, , Bacterial, Parasitic, Viral X-Ray, Labs, Meds, VS Vital Signs Date Time Temp Pulse Resp B/P (MAP) Pulse Ox O2 Delivery O2 Flow Rate FiO2 10/13/24 15:09 98.0 88 19 138/98 (111) 99 98.0 Lab Test 10/13/24 14:46 10/13/24 13:49 Range/Units White Blood Count 8.8 4.4-10.8 10^3/uL Red Blood Count 4.94 4.0-5.20 10^6/uL Hemoglobin 16.0 12.2-16.2 g/dL Hematocrit 47.0 H 36.0-46.0 % Mean Corpuscular Volume 95.1 80.0-100.0 fL Mean Corpuscular Hemoglobin 32.4 H 28.0-32.0 pg Mean Corpuscular Hemoglobin Concent 34.1 32.0-36.0 g/dL Red Cell Distribution Width 13.6 11.8-14.3 % Platelet Count 219 140-450 10^3/uL Mean Platelet Volume 9.6 6.9-10.8 fL Neutrophils (%) (Auto) 66.2 37.0-80.0 % Lymphocytes (%) (Auto) 27.1 10.0-50.0 % Monocytes (%) (Auto) 5.1 0.0-12.0 % Eosinophils (%) (Auto) 1.1 0.0-7.0 % Basophils (%) (Auto) 0.5 0.0-2.0 % Neutrophils # (Auto) 5.8 1.6-8.6 10 ^3/uL Lymphocytes # (Auto) 2.4 0.4-5.4 10 ^3/uL Monocytes # (Auto) 0.5 0-1.3 10 ^3/uL Eosinophils # (Auto) 0.1 0-0.8 10 ^3/uL Basophils # (Auto) 0 0-0.2 10 ^3/uL Nucleated Red Blood Cells 0.1 % Beta HCG, Quantitative 00994.7 H 1.5-4.2 mIU/mL Urine Color Colorless Yellow Urine Clarity Clear Clear Urine pH 6.0 5.0-9.0 Urine Specific [place] 1.004 1.001-1.035 Urine Protein Negative Negative Urine Ketones Negative Negative Urine Blood Negative Negative /uL Urine Nitrite Negative Negative Urine Bilirubin Negative Negative Urine Urobilinogen Normal Negative mg/dL Urine Leukocyte Esterase Negative Negative /uL Urine RBC None seen 0 - 4 /hpf Urine Microscopic WBC < 1 0-5 /HPF Urine Squamous Epithelial Cells Few <5 /hpf Urine Bacteria None seen None Seen /hpf Urine Glucose Normal Normal mg/dL Urine Test Positive Negative Procedure: US OB ULTRASOUND COMP LESS 14WKS Study Date and Requested Time: 10/13/2024 03:32 PM Study Description: US OB ULTRASOUND COMP LESS 14WKS History: PELVIC PAIN Comparison: OB ULTRASOUND COMP LESS 14WKS on DOS: 01/15/22 Technique: Multiple high resolution purcell-scale images obtained of the uterus, fe tus, and other gestational components with M-mode scanning for evaluation of heart rate. Findings: 1.2 cm intrauterine sonolucent area with possible yolk sac visualized. No pole is visualized. Estimated gestational age 5 weeks/ 3 days based on mean gestational sac diameter of 1.2 cm. Uterus measures 10.4 x 5.6 x 5.2 cm in size. 0.9 x 0.7 x 0.6 cm Suggested subchorionic hemorrhage adjacent to the gestational sac. Cervical os appears closed. Right ovary measures 3.1 x 2.1 x 2.3 cm with a 1.9 cm complex cysts which may represent a corpus luteal cyst. Left ovary measures 2.4 x 1.8 x 2.1 cm. Normal ovarian color Doppler flow bilaterally. No evidence of free fluid in the cul-de-sac. Impression: Intrauterine sonolucent area with possible yolk sac and no pole which may represent an early gestational sac at 5 weeks/ 3 days with estimated date of confinement of 06/12/2025. An ectopic can not be completely excluded. Recommend correlation with beta hCG and ultrasound in 2 weeks or as clinically indicated. 0.9 x 0.7 x 0.6 cm Suggested subchorionic hemorrhage adjacent to the gestational sac. X-Ray, Labs, Meds, VS Comment EXTERNAL MEDICAL RECORDS REVIEWED: [NONE] INDEPENDENT HISTORIANS: [NONE] SOCIAL DETERMINANTS OF HEALTH: [NONE] LABS ORDERED: CMP, BMP, BETA HCG, URINALYSIS REVIEWED AND INTERPRETED RESULTS: NONE IMAGING ORDERED: ABDOMINAL US TREATMENTS ORDERED: NONE PROCEDURES PERFORMED: NONE CRITICAL CARE TIME: NONE 16:45 - I CONSULTED AND SPOKE WITH DR. TAY, PHOTOVOLTAIC SUBCONTRACTOR ABOUT PT'S OB US REPORT AND BETA-HCG TEST ON THE PHONE. DR. TAY SAID THAT THE ULTRASOUND REPORT MAY NOT BE ACCURATE. THE PATIENT NEEDS TO GO TO ANOTHER HOSPITAL TOMORROW MORNING FOR FURTHER EVALUATION OF POSSIBLE ECTOPIC . DR. TAY SPOKE WITH THE PATIENT ON THE PHONE, TO WHICH PATIENT VERBALLY UNDERSTOOD PHOTOVOLTAIC SUBCONTRACTOR ORDERS. PATIENT AGREED TO GO TO ANOTHER HOSPITAL TOMORROW MORNING FOR FURTHER EVALUATION. I HAVE DISCUSSED THE PATIENT WITH THE ATTENDING PHYSICIAN DR. HOLLIS AND HE AGREES WITH THE PATIENT'S PLAN OF CARE AND DISPOSITION. BASED ON HISTORY OF PRESENT ILLNESS, AND PHYSICAL EXAM, PATIENT WILL BE DISCHARGED HOME. SHARED DECISION MAKING: PATIENT INSTRUCTED TO VISIT ANOTHER HOSPITAL TOMORROW MORNING FOR A SECOND OPINION OF OB US REPORT. PATIENT VERBALIZES UNDERSTANDING TO RETURN TO ED FOR NEW OR WORSENING SYMPTOMS OR IF FOLLOW UP WITH PCP CANNOT BE OBTAINED. PATIENT FEELS COMFORTABLE GOING HOME AT THIS TIME. ALL QUESTIONS ADDRESSED AT TIME OF DISCHARGE. Images Reviewed?: Images reviewed and evaluated by me Time of 1ST Reevaluation: 16:46 Reevaluation 1ST: Unchanged Consultation: gas station attendant (16:45 - I SPOKE WITH DR. TAY ON THE PHONE ABOUT FURTHER CARE FOR THE PATIENT. DR. TAY AND I AGREE THAT THE ULTRASOUND REPORT MAY NOT BE ACCURATE. THE PATIENT NEEDS TO GO TO ANOTHER HOSPITAL TOMORROW MORNING FOR FURTHER EVALUATION OF POSSIBLE ECTOPIC .) Patient Education/Counseling: Diagnosis, Treatment, Need For Follow Up Family Education/Counseling: Diagnosis, Treatment, No Family Present Medical Screening: No EMC Exist At This Time SEPSIS Sepsis Screen Physician Orders Ob Ultrasound Comp Less 14wks (10/13/24 14:45) Ob Trans Vaginal Us (10/13/24 15:44) Vital Signs Date Time Temp Pulse Resp B/P (MAP) Pulse Ox O2 Delivery O2 Flow Rate FiO2 10/13/24 15:09 98.0 88 19 138/98 (111) 99 98.0 Laboratory Tests Test 10/13/24 14:46 White Blood Count 8.8 10^3/uL (4.4-10.8) Departure 1 Departure Time of Disposition: 16:52 Impression: Primary Impression: Early stage of Additional Impression: Threatened Disposition: 01 HOME / SELF CARE / HOMELESS Condition: Stable Additional Instructions: FOLLOW-UP WITH PCP IN 1 TO 2 DAYS. TAKE MEDICATIONS PRESCRIBED. RETURN TO ED FOR ANY NEW OR WORSENING SYMPTOMS. Discharged With: Self Critical Care Note Critical Care Time?: No Stability Stability form required: No Heart Score Heart Score: Heart Score Response (Comments) Value History N/A 0 EKG N/A 0 Age N/A 0 Risk Factors N/A 0 Troponin N/A 0 Total 0 I personally scribed for DENISE WHITE ([email or web address]) on 10/13/24 at 16:50. Electronically submitted by Alicia Colunga ([facility]). I personally scribed for DENISE WHITE ([email or web address]) on 10/13/24 at 16:50. Electronically submitted by Alicia Colunga ([facility]). DENISE WHITE Oct 13, 2024 14:52
[2024-10-13 14:59] LABS: Hematocrit 47.0 % (36.0-46.0); Hemoglobin 16.0 g/dL (12.2-16.2); Mean Corpuscular Hemoglobin 32.4 pg (28.0-32.0); Mean Corpuscular Volume 95.1 fL (80.0-100.0); Nucleated Red Blood Cells % 0.1 %
[2024-10-13 15:06] LABS: Urine Protein, UAD Negative (Negative)
[2024-10-13 15:09] VITALS: BP 138/98; PULSE 88; RESP 19; TEMP 98; O2SAT 99
--- NOTE | 2024-10-13 16:21 | DVH ---
Procedure: US OB ULTRASOUND COMP LESS 14WKS Study Date and Requested Time: 10/13/2024 03:32 PM Study Description: US OB ULTRASOUND COMP LESS 14WKS History: PELVIC PAIN Comparison: OB ULTRASOUND COMP LESS 14WKS on DOS: 01/15/22 Technique: Multiple high resolution purcell-scale images obtained of the uterus, fetus, and other gestat ional components with M-mode scanning for evaluation of heart rate. Findings: 1.2 cm intrauterine sonolucent area with possible yolk sac visualized. No pole is visualized. E stimated gestational age 5 weeks/ 3 days based on mean gestational sac diameter of 1.2 cm. Uterus measures 10.4 x 5.6 x 5.2 cm in size. 0.9 x 0.7 x 0.6 cm Suggested subchorionic hemorrhage adj acent to the gestational sac. Cervical os appears closed. Right ovary measures 3.1 x 2.1 x 2.3 cm with a 1.9 cm complex cysts which may represent a corpus lute al cyst. Left ovary measures 2.4 x 1.8 x 2.1 cm. Normal ovarian color Doppler flow bilaterally. No evidence of free fluid in the cul-de-sac. Impression: Intrauterine sonolucent area with possible yolk sac and no pole which may represent an early ge stational sac at 5 weeks/ 3 days with estimated date of confinement of 06/12/2025. An ectopic pregnan cy can not be completely excluded. Recommend correlation with beta hCG and ultrasound in 2 weeks or a s clinically indicated. 0.9 x 0.7 x 0.6 cm Suggested subchorionic hemorrhage adjacent to the gestational sac.
== END 2024-10-13 16:46 | disposition home or self-care (01) ==
LOC: ER 12:52
DX: O20.0 Threatened abortion (principal); Z3A.01 Less than 8 weeks gestation of pregnancy; J45.909 Unspecified asthma, uncomplicated; Z79.899 Other long term (current) drug therapy
CPT/HCPCS: 36415; 76801; 76817; 81001; 81025; 84702; 85025